=== PATIENT | male | born 1995 | race Caucasian/White ===

== ENCOUNTER 2022-12-17 12:49 | Outpatient (CLI) | payer OTHER ==
--- NOTE | 2022-12-17 13:47 | SLEEP CARE CONSULTATION ---
Information from patient questionnaire entered by Drake Rebolledo. I have reviewed and concur with the information entered by Drake Rebolledo. This document represents the service I personally performed and the decisions made by me, Aure Griffiths ARNP. History of Present Illness Service Date and Time: 12/17/2022 1249 Reason for Visit: New patient Chief Complaint: reports: Snoring, Excessive daytime sleepiness, Fatigue, Frequent awakenings at night Date of Onset: 5-6YRS Usual bedtime: 10PM Time it takes to fall asleep: 5-10MINS -4-5HRS Snores at night: Yes Observed to quit breathing while asleep: Yes Sleeps alone due to snoring: No Number of times waking at night: EVERY FEW HRS Reasons for waking at night: reports: Choking, Snoring, Gasping for air, Other (UNKNOWN) Toss, Turn, or Twitch while sleeping: Yes Recalls having dreams: Yes Usually gets out of bed at: 8-10AM Feels refreshed in the morning: No Morning headache: No Sleepy or fatigued during the day: Yes Ever fallen asleep while driving: No Takes day naps: Yes (daily now, for 1 hr to 3 hr) Dreams during day naps: Yes Prior sleep studies: No Additional HPI information: I had the pleasure of seeing ELTON ORDOÑEZ today regarding the possibility of him having a sleep disorder. His current complaints are excessive daytime sleepiness, fatigue, frequent night awakenings and snoring. He states he is waking himself up a lot, he is "jerking" awake. His has told him that he has gasped in his sleep and stopped breathing. He is tired through the day. He just does not feel he is getting a good night sleep. He can fall asleep quickly or not be able to sleep for hours. His states he snores loudly but she is still able to sleep in same room. He feels that the jerking awake and daytime fatigue is getting worse. He is from the [place] and starting a new job at [employer]. He states he will be starting on a daytime shift at first but then going to a date night caregiver. - Parasomnia Symptoms Ever been unable to move upon waking from sleep: No Walks in sleep: No Talks in sleep: No Ever acted out dreams in sleep: No Ever felt weak in the knees when startled or emotional: No Bothered by creepy, crawly, restless sensations in legs: No Problems with memory or concentration: Yes (both, memory has never been very good; more recently he has hard time concr) Subjective Initial Hamill Sleepiness Scale score: 17 (12/17/22) Past Medical History Past Medical History: reports: Anxiety, Asthma Social History The patient's occupation is a AM. Patient is and lives in [place]. Have you smoked in the past 12 months: No Years of smokin Quit date: 2020 Alcohol use: Yes Alcohol amount and frequency: 2-3 DRINKS WEEKLY Caffeine use: Yes Caffeine amount and frequency: 1 CUP COFFEE EVERYDAY - EVERY OTHER DAY Family History Family history of sleep disordered breathing: No Allergies and Home Medications Known drug allergies: No Drug allergies reviewed: Yes Home medication list reviewed: Yes Allergy and home medication list: Medications: Hydroxyzine Albuterol inhaler [employer] brand Zyrtec Review of Systems Cardiovascular: denies: high blood pressure Respiratory: reports: shortness of breath, wheeze Gastrointestinal: denies: heartburn Neurological: denies: headaches Psychiatric: reports: anxiety Ear/Nose/Throat: reports: nasal congestion, sinus problems, dry mouth/throat, wisdom teeth removed. denies: tonsillectomy Musculoskeletal: reports: neck pain Immunologic: reports: allergies to food or environment Physical Exam Vital signs obtained and entered by: DRAKE Zimmer MA Blood Pressure: 118/64 (LEFT ARM) Cuff size: regular Heart Rate: 73 O2 Saturation: 98 Height: 6 ft Weight: 141 lb 6.4 oz Body Mass Index: 19.1 BMI Classification: Normal Neck circumference: 15.5 Mouth and throat: narrow oropharynx Soft palate: long Hard palate: normal Uvula: normal Uvula visualization: 25% Mallampati Class III Tongue: enlarged in size with teeth barrera on lateral edges Tonsils: 1+ Neck: normal w/o lymphadenopathy or thyromegaly Heart: regular rate and rhythm Lungs: clear bilaterally Impression and Plan 1. Suspected Obstructive Sleep Apnea-Hypopnea Syndrome, as suggested by a history of loud and irregular snoring, observed cessation of breath while asleep, gasping or choking in sleep, frequent awakening during the night, unrefreshed sleep, cognitive impairment, and excessive daytime sleepiness. Narrow oropharynx and obesity are common predisposing factors for obstructive sleep apnea-hypopnea syndrome. I recommend proceeding to polysomnography to confirm the diagnosis and to assess severity. If the patient has significant sleep disordered breathing, a manual CPAP titration study will also be performed to find the optimal treatment pressure. I informed the patient of what the sleep studies involve and after some discussion, obtained agreement to proceed. The pathophysiology of obstructive sleep apnea-hypopnea syndrome was discussed with the patient and health risks of cardiovascular and cerebrovascular disease if not treated. Risks of drowsy driving discussed in detail and patient advised to avoid long distance driving and to pullman car repairer at the first sign of drowsiness. Patient agreed to plan. * Schedule polysomnography +- manual CPAP titration study and return in 1-2 weeks after the study to discuss result and initiate therapy. * Avoid long distance driving or driving when feeling sleepy. * Avoid alcohol, sedative and muscle relaxant around bedtime. * Attempt to lose weight. * Review instructions provided by trained office staff on how to prepare for the sleep study. * Return for follow-up after sleep study completed. Counseling Topics: Weight loss health impact Visit Type: In Office Time Spent with Patient (minutes): 30 Provider Statement: I spent 100% of the Face to Face Visit with the patient with greater than 50% spent counseling the patient and coordination of care.
[2022-12-17 13:52] VITALS: BP 118/64
== END 2022-12-17 12:50 | disposition home or self-care (01) ==
LOC: SC 12:49
PROVIDERS: ATTEND Nurse Practitioner Family
DX: R06.83 Snoring (principal); G47.8 Other sleep disorders; G47.10 Hypersomnia, unspecified; R06.81 Apnea, not elsewhere classified; R41.89 Other symptoms and signs involving cognitive functions and awareness; Z87.891 Personal history of nicotine dependence
CPT/HCPCS: 99203; 99212

== ENCOUNTER 2023-01-27 16:20 | Outpatient (CLI) | payer OTHER | END 2023-01-27 16:21 | disposition home or self-care (01) | LOC: SC 16:20 | PROVIDERS: ATTEND Nurse Practitioner Family | DX: R06.83 Snoring (principal); G47.8 Other sleep disorders; R06.81 Apnea, not elsewhere classified; G47.10 Hypersomnia, unspecified; R53.83 Other fatigue | CPT/HCPCS: 95806 ==